=== PATIENT | female | born 1950 | race Caucasian/White ===

== ENCOUNTER 2024-11-28 16:27 | Emergency (ER) | payer OTHER, MEDICAID ==
[2024-11-28] MEDS ORDERED: fentaNYL 50 mcg/mL 1 mL Vial ONE ×2 (16:48→18:12)
[2024-11-28 17:35] LABS: #Basophils Less than 0.03 10x3/uL (0.0-0.2); #Eosinophils 0.04 10x3/uL (0.0-0.5); #Monocytes 0.81 10x3/uL (0.0-1.1); #Neutrophils 7.82 10x3/uL (1.5-8.4); %Basophils 0.2 % (0.0-2.0); %Eosinophils 0.4 % (0.0-6.0); %Lymphocytes 15.1 % (18.0-47.0); %Monocytes 7.8 % (0.0-10.0); %Neutrophils 75.5 % (40.0-75.0); Hematocrit 38.6 % (34.9-44.5); Mean Corpuscular HGB CONC 33.7 g/dL (32.0-36.0); Mean Corpuscular Hemoglobin 30.9 pg (27.0-33.0); Mean Corpuscular Volume 91.7 fL (81.6-98.3); Mean Platelet Volume 11.4 fL (7.4-10.4); Platelet Count 183 10x3/uL (150-450); RBC Distribution Width 12.8 % (11.5-14.5); Red Blood Cell (RBC) Count 4.21 10x6/uL (3.90-5.03); White Blood Cell (WBC) Count 10.35 10x3/uL (3.5-10.5)
[2024-11-28 18:02] LABS: ALT (SGPT) 20 U/L (8-55); AST (SGOT) 26 U/L (5-34); Albumin 4.1 g/dL (3.4-4.8); Alkaline Phosphatase 84 U/L (40-110); Anion Gap 15 mmol/L (10-20); BUN (Urea Nitrogen) 14 mg/dL (9.8-20.1); Bilirubin, Total 0.3 mg/dL (0.2-1.2); Calc. Creatinine Clearance 0 mL/min (70-130); Calcium 9.4 mg/dL (7.8-10.44); Carbon Dioxide 18 mmol/L (23-31); Chloride 105 mmol/L (98-107); Estimated GFR 60; Globulin 2.5 g/dL (2.4-3.5); Glucose 144 mg/dL (83-110); Potassium 4.1 mmol/L (3.5-5.1); Protein, Total 6.6 g/dL (5.8-8.1); Sodium 134 mmol/L (136-145)
[2024-11-28 18:04] LABS: PTT 24.1 sec (22.0-33.0); Prothrombin Time 10.8 sec (9.5-12.1)
[2024-11-28] MEDS ORDERED: Ondansetron PF 4 MG/2 ML Vial ONE (19:30)
== END 2024-11-28 20:27 | disposition home or self-care (01) ==
LOC: CSHERS 16:27
DX: S32.591A Other specified fracture of right pubis, initial encounter for closed fracture (principal); S32.592A Other specified fracture of left pubis, initial encounter for closed fracture; S32.119A Unspecified Zone I fracture of sacrum, initial encounter for closed fracture; I10 Essential (primary) hypertension; R73.03 Prediabetes; W18.11XA Fall from or off toilet without subsequent striking against object, initial encounter
CPT/HCPCS: 71045; 72170; 72192; 73502; 73552; 80053; 85025; 85610; 85730; 86850; 86900; 86901; J2405; J3010; 36415; 96374; 96375; 96376